=== PATIENT | male | born 1950 | race Caucasian/White ===

== ENCOUNTER 2016-10-31 09:21 | Observation (INO) | payer MEDICARE, BC ==
[~2016-10-31] VITALS: Ht 157.5 cm; Wt 56.0 kg
[~2016-10-31 09:21] MED LIST: ASPI-664 PO; ATOR10TA65 PO; BENA40TA54 PO; CHOL400T10 PO; CLOP75TA27 PO; DOCU-159 PO; FOLI-49 PO; HYDR-2086 PO; HYDR-3672 PO; ISOS30TA18 PO; MEGE40TA17 PO; METO-429 PO; NEPH PO; NIFE60TA7 PO; PANT40TA4 PO; POLY17PO6 PO; SEVE800T10 PO
[2016-10-31 09:25] VITALS: Ht 157.5 cm; Wt 56.0 kg
[2016-10-31] MEDS ORDERED: LANT3I SC (10:18)
[2016-10-31] MEDS ORDERED: ATOR80TA75 PO (10:19)
[2016-10-31 10:52] LABS: ADD SCAN DIFF NO
[2016-10-31 10:56] LABS: BASOPHILS % 0.2 % (0.0-2.0); EOSINOPHILS # 0.1 10^3/ul (0.0-0.5); EOSINOPHILS % 2.2 % (0.0-7.0); HEMATOCRIT 40.1 % (42.0-52.0); HEMOGLOBIN 12.3 g/dl (14.0-18.0); LYMPHOCYTES % 16.6 % (15.0-51.0); MEAN CORPUSCULAR HEMOGLOBIN 30.8 pg (29.0-33.0); MEAN CORPUSCULAR HGB CONC 30.7 g/dl (32.0-37.0); MEAN CORPUSCULAR VOLUME 100.5 fl (82.0-101.0); MEAN PLATELET VOLUME 9.3 fl (7.4-10.4); MONOCYTE # 0.6 10^3/ul (0.3-0.9); MONOCYTES % 9.5 % (0.0-11.0); NEUTROPHIL # 4.1 10^3/ul (1.6-7.5); NEUTROPHILS % 71.2 % (39.0-77.0); PLATELET COUNT 185 10^3/UL (140-415); RED BLOOD COUNT 3.99 10^6/ul (4.70-6.10); RED CELL DISTRIBUTION WIDTH 16.2 % (11.5-14.5); WHITE BLOOD COUNT 5.8 10^3/ul (4.8-10.8)
[2016-10-31] MEDS ORDERED: ACETAMINOPHEN 325 MG TAB PO PRN (11:00)
[2016-10-31] MEDS ORDERED: ONDANSETRON 4 MG INJ IV PRN (11:00)
[2016-10-31 11:06] LABS: POTASSIUM 4.5 mmol/L (3.5-5.1)
[2016-10-31 11:09] LABS: CREATININE 8.33 mg/dl (0.61-1.24)
[2016-10-31 11:10] LABS: CALCIUM 8.5 mg/dl (8.4-10.2); MAGNESIUM 2.2 mg/dl (1.7-2.5); PHOSPHORUS 6.2 mg/dl (2.5-4.9)
--- NOTE | 2016-10-31 11:10 | ERA ---
ER Documentation Chief Complaint Date/Time DATE: 10/31/16 TIME: 11:06 Chief Complaint AV FISTULA CLOGGED HPI 66-year-old female with a history of hypertension, end-stage renal disease on hemodialysis, presenting with a clotted AV fistula in the right arm. He has had this multiple times in the past. He received dialysis 2 days ago. After dialysis , he felt that he had no thrill over the fistula site. He went back to the dialysis center and they told him it was clotted. They advised to go to the ER today. Patient has no other complaints. He denies any pain in the upper extremity. No fevers or chills. No shortness of breath or chest pain. ROS All systems reviewed and are negative except as per history of present illness. Medications Home Meds Active Scripts Isosorbide Dinitrate* (Isosorbide Dinitrate*) 30 Mg Tablet, 30 MG PO TID, #90 TAB Prov:ROBI BOUDREAUX MD 05/12/14 Reported Medications Atorvastatin* (Atorvastatin*) 80 Mg Tablet, 80 MG PO QHS, #30 TAB 10/31/16 Insulin Glargine* (Lantus*) 100 Unit/Ml Soln, 0 SC DAILY Y for ELEVATED BS, #1 VIAL 10/31/16 Clopidogrel Bisulfate (Clopidogrel) 75 Mg Tablet, 75 MG PO DAILY, #30 TAB 04/26/16 Benazepril Hcl* (Lotensin*) 40 Mg Tablet, 40 MG PO BID, #60 TAB 04/26/16 Folic Acid* (Folic Acid*) 1 Mg Tablet, 1 MG PO DAILY, TAB 01/12/15 Nifedipine* (Nifedipine ER*) 60 Mg Tablet.sa, 60 MG PO BID, TAB.SA 01/12/15 Hydralazine Hcl* (Hydralazine Hcl*) 50 Mg Tab, 50 MG PO TID, TAB 01/12/15 Metoprolol Tartrate* (Lopressor*) 50 Mg Tab, 50 MG PO BID, TAB 01/12/15 Aspirin* (Aspirin* (EC)) 81 Mg Tablet.dr, 81 MG PO DAILY, TAB 04/17/14 Discontinued Reported Medications Docusate Sodium* (Docusate Sodium*) 100 Mg Capsule, 100 MG PO DAILY, #30 CAP 04/26/16 Cholecalciferol* (Vitamin D*) 400 Unit Tablet, 400 UNIT PO DAILY, TAB 04/26/16 Polyethylene Glycol* (Miralax*) 17 Gm Powd.pack, 17 GM PO DAILY, #30 PACKET 04/26/16 Hydrocodone Bit-Acetaminophen* (Vicodin*) 5-300 Tab, 1 TAB PO DAILY Y for PAIN, TAB 04/26/16 Megestrol Acetate* (Megestrol Acetate*) 40 Mg Tablet, 40 MG PO DAILY, TAB 04/26/16 Multivit/Ca Carb/B Cmplx/Fa* (Samina-Alexandrea*) 1 Tab Tab, 1 TAB PO DAILY, TAB 04/17/14 Sevelamer Hcl* (Renagel*) 800 Mg Tablet, 800 MG PO TID, TAB 04/16/14 Pantoprazole* (Pantoprazole*) 40 Mg Tablet.dr, 40 MG PO DAILY, TAB 04/16/14 Discontinued Scripts Atorvastatin Calcium (Atorvastatin Calcium) 10 Mg Tab, 10 MG PO QHS, #60 TAB Prov:ROBI BOUDREAUX MD 05/12/14 Allergies Allergies: Coded Allergies: No Known Drug Allergies (Verified Allergy, Unknown, 10/31/16) PMhx/Soc History of Surgery: Yes (CABG,,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 AV fistula) Hx Alcohol Use: No Hx Substance Use: No Hx Tobacco Use: No Smoking Status: Never smoker FmHx Family History: No diabetes Physical Exam Vitals Vital Signs Date Time Temp Pulse Resp B/P Pulse Ox O2 Delivery O2 Flow Rate FiO2 10/31/16 09:25 97.9 71 18 168/71 99 Physical Exam Const: Well-appearing, in no distress Head: Atraumatic Eyes: Corneal scarring bilaterally, legally blind ENT: Dry oral mucosa Neck: Full range of motion..~ No meningismus. Resp: Clear to auscultation bilaterally Cardio: Regular rate and rhythm, no murmurs Abd: Soft, non tender, non distended. Normal bowel sounds Skin: No petechiae or rashes Back: No midline or flank tenderness Ext: No cyanosis, or edema. Right upper extremity AV fistula without thrill. No evidence of overlying infection Neur: Awake and alert Psych: Normal Mood and Affect Result Diagram: 10/31/16 1029 Results 24 hrs Laboratory Tests Test 10/31/16 10:29 White Blood Count 5.810^3/ul Red Blood Count 3.9910^6/ul Hemoglobin 12.3g/dl Hematocrit 40.1% Mean Corpuscular Volume 100.5fl Mean Corpuscular Hemoglobin 30.8pg Mean Corpuscular Hemoglobin Concent 30.7g/dl Red Cell Distribution Width 16.2% Platelet Count 84027^3/UL Mean Platelet Volume 9.3fl Neutrophils % 71.2% Lymphocytes % 16.6% Monocytes % 9.5% Eosinophils % 2.2% Basophils % 0.2% Nucleated Red Blood Cells % 0.0/100WBC Neutrophils # 4.110^3/ul Lymphocytes # 1.010^3/ul Monocytes # 0.610^3/ul Eosinophils # 0.110^3/ul Basophils # 0.010^3/ul Nucleated Red Blood Cells # 0.010^3/ul Current Medications Medications (Trade) Dose Ordered Sig/Thomas Route PRN Reason Start Time Stop Time Status Last Admin Dose Admin Ondansetron HCl (Zofran Inj) 4 mg BRIDGE ORDER PRN IV NAUSEA AND/OR VOMITING 10/31/16 11:00 11/01/16 10:59 Acetaminophen (Tylenol Tab) 650 mg ER BRIDGE PRN PO MILD PAIN/FEVER 10/31/16 11:00 11/01/16 10:59 Procedures/MDM Patient is presenting with a clotted AV fistula. He is due for dialysis today. Currently he is hemodynamically stable. He will likely need admission for dialysis and declotting of the graft. Vascular surgeon, Dr. Burr was paged without response. I spoke with Dr. Calhoun, who will admit the patient to [facility]. Accepting Care Team: Current data and ongoing care discussed. Time: Time of admission Primary Provider: Lj Consulting: none Outstanding Data: none Departure Diagnosis: Primary Impression: Complication of vascular access for dialysis Qualified Code: T82.9XXA - Complication of vascular access for dialysis, initial encounter Condition: CHECO Parker MD Oct 31, 2016 11:10
[2016-10-31 11:40] VITALS: TEMP 98
[2016-10-31 12:30] VITALS: BP 160/69; RESP 20
[2016-10-31] MEDS ORDERED: DEXTROSE 5%-0.45% NACL 1,000 ML IV SCH (17:00)
[2016-10-31] MEDS ORDERED: DEXTROSE 50% 50 ML SYRINGE IV PRN ×2 (17:00)
[2016-10-31] MEDS ORDERED: GLUCOSE GEL 15 GRAM TUBE PO PRN ×2 (17:00)
[2016-10-31] MEDS ORDERED: GLUCOSE GEL 15 GRAM TUBE BUCCAL PRN (17:00)
[2016-10-31] MEDS ORDERED: GLUCAGON 1 MG INJ IM PRN (17:00)
--- NOTE | 2016-10-31 17:33 | RADRPT ---
PROCEDURE: XR Chest. CLINICAL INDICATION: Shortness of breath. TECHNIQUE: Single frontal view. COMPARISON: 04/26/2016. FINDINGS: The lungs are clear. The heart is enlarged. There is calcification in the aorta consistent with atherosclerosis. There are sternal wires and mediastinal clips. There is no right pleural effusion. There is a small left pleural effusion. There is no pneumothorax. IMPRESSION: 1. Cardiomegaly and atherosclerosis. 2. Previous median sternotomy. 3. No right pleural effusion. 4. Small left pleural effusion. RPTAT: QQ .Mikey Benitez MD, MD Date Time Electronically viewed and signed by .Mikey Benitez MD, MD on 10/31/2016 17:33 .R/
[2016-10-31] MEDS: INSULIN ASPART [NOVOLOG] 3 ML PEN SC SCH ×2 (17:37→20:44)
[2016-10-31 17:51] LABS: INR 1.12; PROTIME 14.4 Sec (12.2-14.2); PT RATIO 1.1
[2016-10-31 17:52] LABS: PARTIAL THROMBOPLASTIN TIME 35.8 Sec (25.0-35.0)
--- NOTE | 2016-10-31 18:04 | QN ---
Documentation Comment [id number] SEPIDEH SAUCEDO MD Oct 31, 2016 18:04
[2016-10-31 20:00] VITALS: BP 186/85; RESP 20
[2016-10-31] MEDS: ISOSORBIDE DINITRATE 10 MG TAB PO SCH (20:34)
[2016-10-31] MEDS: NIFEdipine (XL) 60 MG TAB PO SCH (20:34)
[2016-10-31] MEDS: ATORVASTATIN 80 MG TAB PO SCH (20:34)
[2016-10-31] MEDS: METOPROLOL 50 MG TAB PO SCH (20:36)
[2016-10-31] MEDS: BENAZEPRIL 40 MG TAB PO SCH (20:37)
--- NOTE | 2016-10-31 23:23 | HP ---
DATE OF ADMISSION: 10/31/2016 HISTORY OF PRESENT ILLNESS: Abdon Villanueva is a 66-year-old male with history of ESRD, hypertension, history of clotted graft in the right upper extremity. The patient was discharged previously with diagnosis of hypertension, diabetes mellitus, CAD, atherosclerotic heart disease, dyslipidemia, legal blindness, history of coronary artery bypass graft, history of vascular hypertension. The patient has a history of angioplasty of the brachial artery, angioplasty of the basilic vein. Now presents with clotted AV graft in the upper extremity and is being admitted for further management. PAST MEDICAL HISTORY: History of clotted AV graft and thrombectomy, history of anemia, history of blood transfusion, hypertension, diabetes mellitus, CAD, legal blindness, left BKA, atherosclerotic heart disease, dyslipidemia, history of sepsis, PVD, foot wound. ALLERGY HISTORY: NEGATIVE. FAMILY HISTORY: Negative. SOCIAL HISTORY: Negative. MEDICATION HISTORY: 1. Aspirin. 2. Atorvastatin. 3. Benazepril. 4. Plavix. 5. folic acid. 6. Hydralazine. 7. bp meds 8. Isosorbide. 9. Metoprolol. 10. Nifedipine. REVIEW OF SYSTEMS: Unremarkable. HEENT: Unremarkable. RESPIRATORY: Unremarkable. CARDIOVASCULAR: No chest pain, palpitation. ABDOMEN: Unremarkable. EXTREMITIES: Unremarkable, except a left BKA. PHYSICAL EXAMINATION: GENERAL: The patient is awake, alert. VITAL SIGNS: Pulse of 53, blood pressure 166/69. HEAD: Atraumatic, normocephalic. Pupils: The patient has cloudy eyes. NECK: Supple. LUNGS: Clear. CARDIOVASCULAR: S1, S2 normal. Systolic murmur noted. CABG scar noted. ABDOMEN: Soft, nontender. Bowel sounds present. No palpable mass. EXTREMITIES: Left BKA. The patient has a clotted graft in the left upper extremity and right upper extremity. LABORATORY DATA: Hematocrit 40.1. Sodium 140, potassium 4.5. The patient had a chest x-ray: Cardiomegaly, , sternotomy. IMPRESSION: 1. The patient has clotted graft. 2. Hypertension. 3. Diabetes mellitus. 4. Endstage renal disease. 5. Anemia. 6. Atherosclerotic heart disease. PLAN: To continue home medication. Hold Plavix. Vascular surgical consultation for declotting. The patient will have sliding scale. Orders were done. Dictated By: SEPIDEH SAUCEDO MD BS/CAMELIA Conf#: [id number] DID#: [id number]
[2016-11-01] VITALS (23 sets, daily range): BP systolic 99–142; BP diastolic 37–67; PULSE 92–106; RESP 16–24
--- NOTE | 2016-11-01 01:45 | CONS ---
DATE OF ADMISSION: 10/31/2016 DATE OF CONSULTATION: REASON FOR CONSULTATION: Clotted right upper extremity AV fistula. Thank you, Dr. Calhoun, for asking me to see this patient. HISTORY OF PRESENT ILLNESS: This is a 66-year-old male known to me. He is currently on dialysis pe r right upper extremity AV fistula which has been clotted. Patient is now being admitted for evalua tion and treatment of a clotted AV fistula. PAST MEDICAL HISTORY: Hypertension, diabetes, peripheral vascular disease, hyperlipidemia. PAST SURGICAL HISTORY: Lower extremity amputation, right upper extremity AV fistula thrombectomy. ALLERGIES: NONE. SOCIAL HISTORY: No smoking, drinking or drug use. MEDICATIONS: List reviewed. REVIEW OF SYSTEMS: Negative. FAMILY HISTORY: No history of sudden cardiac . PHYSICAL EXAMINATION: VITAL SIGNS: Blood pressure is 186/85, pulse is 72, respirations 20, saturations 96% on room air. HEENT: Normocephalic, atraumatic. PERRLA. NECK: Supple. No JVD, no carotid bruits. CARDIOVASCULAR: Regular rate and rhythm. LUNGS: Clear. ABDOMEN: Soft. EXTREMITIES: Warm. Right upper extremity arteriovenous fistula is inspected, which has no thrill o r bruit. LABORATORY VALUES: Hemoglobin 12.3, white count 5.8, platelet count is 185. Normal coagulation fac tors and a potassium of 4.5. IMPRESSION: Clotted right upper extremity arteriovenous fistula. RECOMMENDATIONS: We will proceed with thrombectomy, right upper extremity fistula. Risks, benefits , complications, alternative therapies explained to the patient. All questions answered. Dictated By: BERNY PEREZ/CAMELIA Conf#: [id number] DID#: [id number]
[2016-11-01] MEDS: ACCU-CHEK XX SCH (02:00)
[2016-11-01] MEDS: INSULIN ASPART [NOVOLOG] 3 ML PEN SC SCH ×4 (07:43→22:32)
[2016-11-01] MEDS: NIFEdipine (XL) 60 MG TAB PO SCH (09:00)
[2016-11-01] MEDS: FOLIC ACID 1 MG TAB PO SCH (09:00)
[2016-11-01] MEDS: METOPROLOL 50 MG TAB PO SCH (09:00)
[2016-11-01] MEDS: ASPIRIN (EC) 81 MG TAB PO SCH (09:00)
[2016-11-01] MEDS: BENAZEPRIL 40 MG TAB PO SCH (09:00)
[2016-11-01] MEDS: ISOSORBIDE DINITRATE 10 MG TAB PO SCH ×2 (09:00→13:00)
--- NOTE | 2016-11-01 17:53 | PN ---
Date/Time of Note Date/Time of Note DATE: 11/01/16 TIME: 17:52 Assessment/Plan VTE Prophylaxis VTE Prophylaxis Intervention: other Lines/Catheters IV Catheter Type (from Nrs): Peripheral IV Assessment/Plan Chief Complaint/Hosp Course IMPRESSION: 1. The patient has clotted graft. 2. Hypertension. 3. Diabetes mellitus. 4. Endstage renal disease. 5. Anemia. 6. Atherosclerotic heart disease. plan hd declotting Problems: Subjective 24 Hr Interval Summary Respiratory: no complaints Cardiovascular: no complaints Exam/Review of Systems Vital Signs Vitals Vital Signs Date Time Temp Pulse Resp B/P Pulse Ox O2 Delivery O2 Flow Rate FiO2 11/01/16 07:44 98.6 64 18 142/67 96 10/31/16 11:40 Room Air Intake and Output 10/31/16 10/31/16 11/01/16 15:00 23:00 07:00 Intake Total 0 ml 330 ml Output Total 0 ml Balance 0 ml 330 ml Exam Neck: supple Respiratory: clear to auscultation Cardiovascular: regular rate and rhythm Gastrointestinal: soft Musculoskeletal: nl extremities to inspection Results Result Diagram: 10/31/16 1029 10/31/16 1029 Results 24 hrs Laboratory Tests Test 10/31/16 20:40 11/01/16 07:41 11/01/16 11:52 11/01/16 12:30 Bedside Glucose 128 97 78 76 Test 11/01/16 17:44 Bedside Glucose 108 Medications Medications Current Medications Aspirin (Halfprin) 81 mg DAILY PO ; Start 11/01/16 at 09:00 Atorvastatin Calcium (Lipitor) 80 mg QHS PO Last administered on 10/31/16 20: 34; Admin Dose 80 MG; Start 10/31/16 at 21:00 Benazepril HCl (Lotensin) 40 mg BID PO Last administered on 10/31/16 20:37; Admin Dose 40 MG; Start 10/31/16 at 21:00 Folic Acid (Folic Acid) 1 mg DAILY PO ; Start 11/01/16 at 09:00 Hydralazine HCl (Apresoline) 50 mg TID PO Last administered on 10/31/16 20:35 ; Admin Dose 50 MG; Start 10/31/16 at 21:00 Isosorbide Dinitrate (Isordil) 30 mg TID PO Last administered on 10/31/16 20: 34; Admin Dose 30 MG; Start 10/31/16 at 21:00 Metoprolol Tartrate (Lopressor) 50 mg BID PO Last administered on 10/31/16 20: 36; Admin Dose 50 MG; Start 10/31/16 at 21:00 Nifedipine 60 mg 60 mg BID PO Last administered on 10/31/16 20:34; Admin Dose 60 MG; Start 10/31/16 at 21:00 Dextrose/Sodium Chloride (D5-1/2ns) 1,000 ml @ 0 mls/hr Q0M IV Last administered on 10/31/16 20:38; Admin Dose 10 MLS/HR; Start 10/31/16 at 17:00 Diagnostic Test (Pha) (Accu-Chek) 1 ea 02 XX ; Start 11/01/16 at 02:00 Miscellaneous Information 1 ea NOTE XX ; Start 10/31/16 at 17:00 Glucose (Glutose) 15 gm Q15M PRN PO DECREASED GLUCOSE; Start 10/31/16 at 17:00 Glucose (Glutose) 22.5 gm Q15M PRN PO DECREASED GLUCOSE; Start 10/31/16 at 17: 00 Dextrose (D50w Syringe) 25 ml Q15M PRN IV DECREASED GLUCOSE; Start 10/31/16 at 17:00 Dextrose (D50w Syringe) 50 ml Q15M PRN IV DECREASED GLUCOSE; Start 10/31/16 at 17:00 Glucagon (Glucagen) 1 mg Q15M PRN IM DECREASED GLUCOSE; Start 10/31/16 at 17:00 Glucose (Glutose) 15 gm Q15M PRN BUCCAL DECREASED GLUCOSE; Start 10/31/16 at 17 :00 SEPIDEH SAUCEDO MD Nov 01, 2016 17:53
[2016-11-01] MEDS ORDERED: IOHEXOL 300MG/ML 30 ML BTL ONE (18:29)
[2016-11-01] MEDS ORDERED: HEPARIN 1000 UNITS/ML 10 ML INJ ONE ×2 (18:29→19:22)
[2016-11-01] MEDS ORDERED: THROMBIN 5000 UNIT VIAL ONE (18:29)
[2016-11-01] MEDS ORDERED: LIDOCAINE 1% (MPF) 30 ML INJ ONE (18:29)
[2016-11-01] MEDS ORDERED: GELATIN SIZE 100 SPONGE ONE (18:29)
[2016-11-01] MEDS ORDERED: BUPIVACAINE 0.25% (MPF) 30 ML INJ ONE (18:29)
[2016-11-01] MEDS ORDERED: FENTAnyl 50 MCG/ML VIAL ONE (18:37)
[2016-11-01] MEDS ORDERED: DIPHENHYDRAMINE 50 MG INJ IV PRN (19:30)
[2016-11-01] MEDS ORDERED: ONDANSETRON 4 MG INJ IV PRN (19:30)
[2016-11-01] MEDS ORDERED: FENTAnyl 50 MCG/ML VIAL IV PRN (19:30)
[2016-11-01] MEDS ORDERED: LIDOCAINE 2% (SDV) 5 ML INJ ONE (19:45)
[2016-11-01] MEDS ORDERED: ETOMIDATE 20 MG INJ ONE (19:45)
[2016-11-01] MEDS ORDERED: CEFAZOLIN 1 GM INJ ONE (19:46)
[2016-11-01] MEDS ORDERED: ONDANSETRON 4 MG INJ ONE (19:47)
--- NOTE | 2016-11-01 22:48 | OPR ---
DATE OF OPERATION: PREOPERATIVE DIAGNOSIS: Clotted right upper extremity arteriovenous graft. POSTOPERATIVE DIAGNOSIS: Clotted right upper extremity arteriovenous graft. OPERATION PERFORMED: 1. Thrombectomy. 2. Right upper extremity shuntogram. 3. Right upper extremity venogram. 4. Angioplasty, right brachial artery, 5 x 40 mm balloon. 5. Angioplasty, right basilic vein, 5 x 40 mm balloon. 6. Interpretation and supervision of the arterial and the venous angioplasty. 7. Fluoroscopy. 8. Central venogram. 9. Interpretation and supervision of a central venogram. SURGEON: Berny Jackson MD ANESTHESIA: Local plus IV sedation. CONSENT: Risks, benefits, complications, alternative therapies explained to the patient and the [facility], consent obtained. OPERATIVE TECHNIQUE: The patient was placed in supine position, prepped, and draped in usual steril e fashion. Lidocaine 1% was used throughout the operation for local anesthesia. I made a 1 cm inci valerie over the right forearm AV graft at the venous limb of the AV graft. The graft was identified. Vesseloops were passed around it. It was opened in a horizontal fashion. Thrombectomy of arterial and venous limbs of the graft was performed using a 4-[place] Dylan catheter. Large amount of ben t was removed. Arteriogram was done, which showed a 90% stenosis at the arterial anastomosis. The patient was given 5000 units of IV heparin. An 0.035 guidewire was advanced through without any dif ficulties and the site of stenosis was angioplastied using a 5 x 40 mm balloon. Venacavogram was do ne, which showed basilic vein that was stenotic about 70%, which was again angioplastied over an 0.0 35 guidewire up to 2 atmospheres of pressure. The final arteriogram revealed 0% stenosis and the fi nal venogram revealed less than 10% stenosis. A central venogram was done, which showed no evidence of any stenosis in the left axillary vein, subclavian vein, and superior vena cava. Both limbs of the graft were injected using heparinized saline solution. The graft was closed using 6-0 Prolene i n continuous fashion. The wound was irrigated and closed in 2 layers of 3-0 Vicryl suture in runnin g and subcuticular skin closure. The patient tolerated the procedure well. Dictated By: BERNY PEREZ/CAMELIA Conf#: [id number] DID#: [id number] CC: SEPIDEH SAUCEDO MD;*[facility]*
[2016-11-01] MEDS: ONDANSETRON 4 MG INJ IV PRN (23:13)
[2016-11-02] VITALS (14 sets, daily range): BP systolic 106–177; BP diastolic 55–77; PULSE 87–97; RESP 20
[2016-11-02] MEDS: METOPROLOL 50 MG TAB PO SCH ×3 (00:02→12:47)
[2016-11-02] MEDS: BENAZEPRIL 40 MG TAB PO SCH ×3 (00:02→12:47)
[2016-11-02] MEDS: ISOSORBIDE DINITRATE 10 MG TAB PO SCH ×3 (00:22→12:45)
[2016-11-02] MEDS: NIFEdipine (XL) 60 MG TAB PO SCH ×3 (00:36→12:48)
[2016-11-02] MEDS: ATORVASTATIN 80 MG TAB PO SCH (00:37)
[2016-11-02] MEDS ORDERED: hydrALAzine 20 MG INJ IV PRN (01:30)
[2016-11-02] MEDS: ACCU-CHEK XX SCH (02:00)
[2016-11-02] MEDS ORDERED: METOCLOPRAMIDE 10 MG INJ IV PRN (03:30)
[2016-11-02] MEDS: INSULIN ASPART [NOVOLOG] 3 ML PEN SC SCH ×2 (08:15→12:46)
[2016-11-02] MEDS: FOLIC ACID 1 MG TAB PO SCH ×2 (09:00→12:45)
[2016-11-02] MEDS: ASPIRIN (EC) 81 MG TAB PO SCH ×2 (09:00→12:45)
--- NOTE | 2016-11-02 09:02 | RADRPT ---
Vent Rate: 67 bpm RR Interval: 0 msec AR Interval: 160 msec QRS Duration: 86 msec QT Interval: 408 msec QTC Interval: 431 msec P-R-T [place]: 38 - 126 - 82 degrees Normal sinus rhythm Right axis deviation Abnormal ECG Electronically Signed By: El Watson [id number]
[2016-11-02] MEDS: ONDANSETRON 4 MG INJ IV PRN (11:41)
--- NOTE | 2016-11-02 12:39 | RADRPT ---
PROCEDURE: Intraoperative imaging of the right upper extremity with fluoroscopy. CLINICAL INDICATION: Right arm pain. Intraoperative. TECHNIQUE: 16 images of the right upper extremity were obtained in the operating room with an imag e intensifier. No radiologist was in attendance. COMPARISON: No prior study is available for comparison. FINDINGS: Images demonstrate surgical instruments overlying the right upper extremity. Contrast injection int o the arterial system was performed. There is severe stenosis of the outflow vein of the dialysis g raft. Balloon venoplasty was performed by the surgeon. IMPRESSION: 1. Intraoperative imaging of the right upper extremity. RPTAT: QQ .Mikey Benitez MD, MD Date Time Electronically viewed and signed by .Mikey Benitez MD, on 11/02/2016 12:38 .R/
--- NOTE | 2016-11-02 13:09 | PDOCDIS ---
Discharge Instructions CONDITION Patient Condition: Stable HOME CARE INSTRUCTIONS: Special Diet: CARB CONTROLLED DIET ACTIVITY: Activity Restrictions: Slowly Increase Activity FOLLOW UP/APPOINTMENTS Appointments f/u dr finley 1 wk, see dr saucedo 2 wks SEPIDEH SAUCEDO MD Nov 02, 2016 13:09
--- NOTE | 2016-11-05 07:57 | QN ---
Documentation Comment [id number] SEPIDEH SAUCEDO MD Nov 05, 2016 07:56
--- NOTE | 2016-11-05 13:47 | DS ---
DATE OF ADMISSION: 10/31/2016 DATE OF DISCHARGE: 11/02/2016 The patient was admitted with clotted AV graft, was seen by Dr. Jackson and underwent thrombectomy, right upper extremity,edema and angioplasty right brachial artery with a 5 x 14 mm balloon. The patient has angioplasty right basilic veins. The patient has fluoroscopy. The patient underwent hemodialysis and was discharged home. DISCHARGE DIAGNOSES: Include: 1. Clotted arteriovenous draft status post thrombectomy. 2. Angioplasty of cephalic vein and_brachial artery. 3. Hypertension. 4. Diabetes mellitus. 5. Anemia. 6. Electrolyte imbalance. 7. Atherosclerotic heart disease. 8. Dyslipidemia. 9. Legal blindness. 10. History of sepsis. 11. History of peripheral vascular disease. DISCHARGE MEDICATIONS: To continue on: 1. Aspirin. 2. Metoprolol. 3. Benazepril. 4. Plavix. 5. Folic acid. 6. Hydralazine. 7. Insulin. 8. Isosorbide. 9. Nifedipine. ASSESSMENT AND PLAN: The patient is stable at the time of discharge. The patient will follow up with Dr. Saucedo as an outpatient and Dr. Jackson. Dictated By: SEPIDEH SAUCEDO MD BS/NTS Conf#: [id number] DID#: [id number]
== END 2016-11-02 16:50 | disposition home or self-care (01) ==
LOC: E/R 09:21 → MS2 10:58
PROVIDERS: ADMIT Internal Medicine Nephrology; ATTEND Internal Medicine Nephrology
DX: T82.868A Thrombosis due to vascular prosthetic devices, implants and grafts, initial encounter (principal); T82.858A Stenosis of other vascular prosthetic devices, implants and grafts, initial encounter; I12.0 Hypertensive chronic kidney disease with stage 5 chronic kidney disease or end stage renal disease; N18.6 End stage renal disease; Z99.2 Dependence on renal dialysis; E11.22 Type 2 diabetes mellitus with diabetic chronic kidney disease; E11.51 Type 2 diabetes mellitus with diabetic peripheral angiopathy without gangrene; Z79.4 Long term (current) use of insulin; E78.5 Hyperlipidemia, unspecified; D64.9 Anemia, unspecified; H54.8 Legal blindness, as defined in USA; I25.10 Atherosclerotic heart disease of native coronary artery without angina pectoris; Z95.1 Presence of aortocoronary bypass graft; Z89.512 Acquired absence of left leg below knee; Z87.01 Personal history of pneumonia (recurrent); Z79.82 Long term (current) use of aspirin; Z79.02 Long term (current) use of antithrombotics/antiplatelets; Y83.2 Surgical operation with anastomosis, bypass or graft as the cause of abnormal reaction of the patient, or of later complication, without mention of misadventure at the time of the procedure
CPT/HCPCS: 36415; 36905; 71010; 75962; 80048; 82962; 83735; 84100; 85025; 85610; 85730; 90935; 93005; 96372; 96374; 96375; 99285; C1725; G0378; J0360; J0690; J1644; J1815; J2405; J2765; J3010; Q9967

== ENCOUNTER 2017-04-10 14:04 | Observation (INO) | payer MEDICARE, BC ==
[~2017-04-10] VITALS: Ht 167.6 cm; Wt 56.0 kg
[~2017-04-10 14:04] MED LIST changes: -ATOR10TA65 PO; +ATOR80TA75 PO; -CHOL400T10 PO; -DOCU-159 PO; -HYDR-2086 PO; +LANT3I SC; -MEGE40TA17 PO; -NEPH PO; -PANT40TA4 PO; -POLY17PO6 PO; -SEVE800T10 PO
[2017-04-10] MEDS ORDERED: NEPH PO (16:41)
--- NOTE | 2017-04-10 17:23 | ERA ---
ER Documentation Chief Complaint Date/Time DATE: 04/10/17 TIME: 17:21 Chief Complaint pt bib daughter for RFA AV fistula being clotted HPI 67-year-old man brought in by daughter for possible clotted right upper extremity AV fistula. He has end-stage kidney disease and undergoes hemodialysis Monday, , Saturdays. Last hemodialysis 2 days ago. Patient denies chest pain or shortness of breath, no fevers or chills, no recent trauma, no vomiting or diarrhea. ROS All systems reviewed and are negative except as per history of present illness. Medications Home Meds Active Scripts Isosorbide Dinitrate* (Isosorbide Dinitrate*) 30 Mg Tablet, 30 MG PO TID, #90 TAB Prov:ROBI BOUDREAUX MD 05/12/14 Reported Medications Multivit/Ca Carb/B Cmplx/Fa* (Samina-Alexandrea*) 1 Tab Tab, 1 TAB PO DAILY, TAB 04/10/17 Atorvastatin* (Atorvastatin*) 80 Mg Tablet, 80 MG PO QHS, #30 TAB 10/31/16 Insulin Glargine* (Lantus*) 100 Unit/Ml Soln, 0 SC DAILY Y for ELEVATED BS, #1 VIAL 2 units as needed 10/31/16 Clopidogrel Bisulfate (Clopidogrel) 75 Mg Tablet, 75 MG PO DAILY, #30 TAB 04/26/16 Benazepril Hcl* (Lotensin*) 40 Mg Tablet, 40 MG PO BID, #60 TAB 04/26/16 Folic Acid* (Folic Acid*) 1 Mg Tablet, 1 MG PO DAILY, TAB 01/12/15 Nifedipine* (Nifedipine ER*) 60 Mg Tablet.sa, 60 MG PO BID, TAB.SA 01/12/15 Hydralazine Hcl* (Hydralazine Hcl*) 50 Mg Tab, 50 MG PO TID, TAB 01/12/15 Metoprolol Tartrate* (Lopressor*) 50 Mg Tab, 50 MG PO BID, TAB 01/12/15 Aspirin* (Aspirin* (EC)) 81 Mg Tablet.dr, 81 MG PO DAILY, TAB 04/17/14 Allergies Allergies: Coded Allergies: No Known Drug Allergies (Verified Allergy, Unknown, 04/10/17) PMhx/Soc Hypertension, end-stage kidney disease, hemodialysis dependent Monday, , Saturdays, CAD History of Surgery: Yes ( CABG, LEFT BKA, AVF PLACEMENT, RETINAL DETACHMENT) Anesthesia Reaction: No Hx Neurological Disorder: No Hx Respiratory Disorders: No Hx Psychiatric Problems: No Hx Miscellaneous Medical Probl: Yes (LEFT BKA) Hx Alcohol Use: No Hx Substance Use: No Hx Tobacco Use: No Physical Exam Vitals Vital Signs Date Time Temp Pulse Resp B/P Pulse Ox O2 Delivery O2 Flow Rate FiO2 04/10/17 14:09 98.3 74 16 138/63 99 Physical Exam GENERAL: Well-developed, well-nourished, well-hydrated, in no apparent distress , looks nontoxic in appearance HEENT: Moist mucous membranes, pink conjunctiva, no cervical spine tenderness or step-off deformities, no goiter, no jaundice or icterus, extraocular movements intact without pain. No submandibular induration, and no pharyngeal erythema NEURO: Alert and oriented 3, cranial nerves II through XII intact bilaterally, pupils equal round reactive to light, no focal deficits or facial asymmetry, sensation intact distally Strength 5/5 in upper and lower extremities bilaterally CARDIAC: Regular rate and rhythm, no murmurs rubs or gallops LUNGS: Clear bilaterally no wheezing crackles or stridor ABDOMEN: Soft nontender, no guarding, no rigidity, no rebound, no psoas sign no obturator sign. Normoactive bowel sounds SKIN: Warm and dry to touch, no abrasions, contusions, or hematomas, no lacerations, no ecchymosis, no target lesions, and without ulcers EXTREMITIES: AV fistula noted in the right upper extremity, no thrill palpated, no overlying skin cellulitis PSYCH: Normal affect without agitation or irritability Result Diagram: 04/10/17 1710 04/10/17 1710 Results 24 hrs Laboratory Tests Test 04/10/17 17:10 White Blood Count 6.210^3/ul Red Blood Count 2.6310^6/ul Hemoglobin 8.3g/dl Hematocrit 25.3% Mean Corpuscular Volume 96.2fl Mean Corpuscular Hemoglobin 31.6pg Mean Corpuscular Hemoglobin Concent 32.8g/dl Red Cell Distribution Width 14.6% Platelet Count 06096^3/UL Mean Platelet Volume 10.0fl Neutrophils % 70.1% Lymphocytes % 15.8% Monocytes % 10.0% Eosinophils % 3.7% Basophils % 0.2% Nucleated Red Blood Cells % 0.0/100WBC Neutrophils # 4.410^3/ul Lymphocytes # 1.010^3/ul Monocytes # 0.610^3/ul Eosinophils # 0.210^3/ul Basophils # 0.010^3/ul Nucleated Red Blood Cells # 0.010^3/ul Prothrombin Time 14.2Sec Prothrombin Time Ratio 1.1 INR International Normalized Ratio 1.10 Sodium Level 139mmol/L Potassium Level 4.8mmol/L Chloride Level 100mmol/L Carbon Dioxide Level 25mmol/L Anion Gap 19 Blood Urea Nitrogen 71mg/dl Creatinine 7.05mg/dl Glucose Level 161mg/dl Calcium Level 8.6mg/dl Total Bilirubin 0.0mg/dl Direct Bilirubin 0.00mg/dl Indirect Bilirubin 0.0mg/dl Aspartate Amino Transf (AST/SGOT) 31IU/L Alanine Aminotransferase (ALT/SGPT) 37IU/L Alkaline Phosphatase 156IU/L Troponin I < 0.012ng/ml Total Protein 6.9g/dl Albumin 3.8g/dl Globulin 3.10g/dl Albumin/Globulin Ratio 1.22 Lipase 244U/L Current Medications Medications (Trade) Dose Ordered Sig/Thomas Route PRN Reason Start Time Stop Time Status Last Admin Dose Admin Aspirin (Halfprin) 81 mg DAILY PO 04/11/17 09:00 Atorvastatin Calcium (Lipitor) 80 mg QHS PO 04/10/17 21:00 Benazepril HCl (Lotensin) 40 mg BID PO 04/10/17 21:00 Folic Acid (Folic Acid) 1 mg DAILY PO 04/11/17 09:00 Hydralazine HCl (Apresoline) 50 mg TID PO 04/10/17 21:00 Isosorbide Dinitrate (Isordil) 30 mg TID PO 04/10/17 21:00 Metoprolol Tartrate (Lopressor) 50 mg BID PO 04/10/17 21:00 Multivit/Ca Carb/ B Cmplx/FA/Prenat (Samina-Alexandrea) 1 tab DAILY PO 04/11/17 09:00 Nifedipine (Procardia Xl) 60 mg BID PO 04/10/17 21:00 IV Flush (NS 3 ml) 3 ml PER PROTOCOL IV 04/10/17 19:30 Ondansetron HCl (Zofran Inj) 4 mg Q6H PRN IV NAUSEA AND/OR VOMITING 04/10/17 19:30 Docusate Sodium (Colace) 100 mg Q12H PRN PO CONSTIPATION 04/10/17 19:30 Bisacodyl (Dulcolax) 5 mg DAILY PRN PO CONSTIPATION 04/10/17 19:30 Famotidine (Pepcid Iv) 10 mg DAILY IV 04/11/17 09:00 Miscellaneous Information (* Miscellaneous Pharmacy Order) Discontinue current oral sulfonylur... ONCE ONCE XX 04/10/17 19:30 04/10/17 19:31 DC Diagnostic Test (Pha) (Accu-Chek) 1 ea 02 XX 04/11/17 02:00 Miscellaneous Information (* Miscellaneous Pharmacy Order) HYPOGLYCEMIA PROTOCOL w... ONCE ONCE XX 04/10/17 19:30 04/10/17 19:31 DC Insulin Aspart (Novolog Insulin Pen) NOVOLOG *MILD* ALGORITHM WITH MEALS BEDTIME SC 04/10/17 21:00 Miscellaneous Information (* Miscellaneous Pharmacy Order) Discontinue all previ... ONCE ONCE XX 04/10/17 19:30 04/10/17 19:31 DC Miscellaneous Information 1 ea NOTE XX 04/10/17 19:30 Glucose (Glutose) 15 gm Q15M PRN PO DECREASED GLUCOSE 04/10/17 19:30 Glucose (Glutose) 22.5 gm Q15M PRN PO DECREASED GLUCOSE 04/10/17 19:30 Dextrose (D50w Syringe) 25 ml Q15M PRN IV DECREASED GLUCOSE 04/10/17 19:30 Dextrose (D50w Syringe) 50 ml Q15M PRN IV DECREASED GLUCOSE 04/10/17 19:30 Glucagon (Glucagen) 1 mg Q15M PRN IM DECREASED GLUCOSE 04/10/17 19:30 Glucose (Glutose) 15 gm Q15M PRN BUCCAL DECREASED GLUCOSE 04/10/17 19:30 Procedures/MDM IV line was established patient was placed on cardiac technician rhythm strip revealed a sinus rhythm at about 60 bpm. Patient was afebrile. EKG performed, read by me: 65 bpm, normal sinus rhythm, normal axis, no acute ST segment changes, narrow QRS complex, with good R-wave progression in precordial leads. Vascular Doppler ultrasound of the arteries of the right upper extremity was performed, the arteriovenous fistula is thrombosed. Please refer to radiologist dictation for full report. CBC Revealed anemia with a hemoglobin of 8.3,and electrolytes Revealed dehydration and kidney failure with a BUN/creatinine of 71/7 liver function tests are normal, troponin was negative.Coagulation profile was normal. Patient will be admitted to his PMD Dr. Calhoun and I spoke to vascular surgeon Dr. Jackson regarding the patient's presentation and symptomatology he agreed to evaluate the patient, recommended n.p.o. status Departure Diagnosis: Primary Impression: AV fistula thrombosis Qualified Code: T82.868A - Thrombosis of arteriovenous fistula, initial encounter Additional Impressions: End stage kidney disease Anemia Qualified Code: D64.9 - Anemia, unspecified type Condition: DANELLE Marte MD Apr 10, 2017 17:23
[2017-04-10 17:29] LABS: BASOPHILS % 0.2 % (0.0-2.0); EOSINOPHILS # 0.2 10^3/ul (0.0-0.5); EOSINOPHILS % 3.7 % (0.0-7.0); HEMATOCRIT 25.3 % (42.0-52.0); HEMOGLOBIN 8.3 g/dl (14.0-18.0); LYMPHOCYTES % 15.8 % (15.0-51.0); MEAN CORPUSCULAR HEMOGLOBIN 31.6 pg (29.0-33.0); MEAN CORPUSCULAR HGB CONC 32.8 g/dl (32.0-37.0); MEAN CORPUSCULAR VOLUME 96.2 fl (82.0-101.0); MONOCYTE # 0.6 10^3/ul (0.3-0.9); NEUTROPHIL # 4.4 10^3/ul (1.6-7.5); NEUTROPHILS % 70.1 % (39.0-77.0); PLATELET COUNT 153 10^3/UL (140-415); RED BLOOD COUNT 2.63 10^6/ul (4.70-6.10); RED CELL DISTRIBUTION WIDTH 14.6 % (11.5-14.5); WHITE BLOOD COUNT 6.2 10^3/ul (4.8-10.8)
[2017-04-10 17:45] LABS: INR 1.1; PROTIME 14.2 Sec (12.2-14.2); PT RATIO 1.1
[2017-04-10 17:49] LABS: ALANINE AMINOTRANSFERASE 37 IU/L (13-69); ALBUMIN 3.8 g/dl (3.3-4.9); ALBUMIN/GLOBULIN RATIO 1.22; ALKALINE PHOSPHATASE 156 IU/L (42-121); ANION GAP 19 (8-16); ASPARTATE AMINO TRANSFERASE 31 IU/L (15-46); BLOOD UREA NITROGEN 71 mg/dl (7-20); CALCIUM 8.6 mg/dl (8.4-10.2); CARBON DIOXIDE 25 mmol/L (21-31); CHLORIDE 100 mmol/L (97-110); CREATININE 7.05 mg/dl (0.61-1.24); GLUCOSE 161 mg/dl (70-220); POTASSIUM 4.8 mmol/L (3.5-5.1); SODIUM 139 mmol/L (135-144); TOTAL PROTEIN 6.9 g/dl (6.1-8.1)
[2017-04-10 18:04] LABS: TROPONIN-I < 0.012 ng/ml (0.00-0.12)
--- NOTE | 2017-04-10 19:15 | RADRPT ---
PROCEDURE: Vascular arterial upper extremity graft right CLINICAL INDICATION: Rule out graft thrombosis TECHNIQUE: Color and duplex Doppler ultrasound was performed. COMPARISON: 04/28/2016 FINDINGS: Thrombosis is seen in the arteriovenous fistula extending from the anastomosis with the right brachi al artery to the anastomosis with the right basilic vein. The right brachial artery is patent. There is thrombosis seen in the right basilic vein in the upper and mid forearm. IMPRESSION: Thrombosis is seen in the arteriovenous fistula extending from the anastomosis with the right brachi al artery to the anastomosis with the right basilic vein. The right brachial artery is patent. There is thrombosis seen in the right basilic vein in the upper and mid forearm. RPTAT: HJES .Jonatan Balbuena MD, MD Date Time Electronically viewed and signed by .Jonatan Balbuena MD, MD on 04/10/2017 19:15 .S/
--- NOTE | 2017-04-10 19:21 | QN ---
Documentation Comment ESRD HTN DM CAD CABG CLOTTED AVG PLAN PER SURGERY SEPIDEH SAUCEDO MD Apr 10, 2017 19:21
[2017-04-10] MEDS ORDERED: NACL 0.9% 3 ML SYG IV SCH (19:30)
[2017-04-10] MEDS ORDERED: GLUCAGON 1 MG INJ IM PRN (19:30)
[2017-04-10] MEDS ORDERED: DOCUSATE SODIUM 100 MG CAP PO PRN (19:30)
[2017-04-10] MEDS ORDERED: ONDANSETRON 4 MG INJ IV PRN (19:30)
[2017-04-10] MEDS ORDERED: DEXTROSE 50% 50 ML SYRINGE IV PRN ×2 (19:30)
[2017-04-10] MEDS ORDERED: GLUCOSE GEL 15 GRAM TUBE PO PRN ×2 (19:30)
[2017-04-10] MEDS ORDERED: BISACODYL (EC) 5 MG TAB PO PRN (19:30)
[2017-04-10] MEDS ORDERED: GLUCOSE GEL 15 GRAM TUBE BUCCAL PRN (19:30)
[2017-04-10 20:45] VITALS: Ht 167.6 cm; Wt 56.0 kg
[2017-04-10 21:00] VITALS: BP 152/66; RESP 20
[2017-04-10] MEDS: INSULIN ASPART [NOVOLOG] 3 ML PEN SC SCH (21:00)
[2017-04-10] MEDS: ATORVASTATIN 80 MG TAB PO SCH (21:51)
[2017-04-10] MEDS: METOPROLOL 50 MG TAB PO SCH (21:52)
[2017-04-10] MEDS: NIFEdipine (XL) 60 MG TAB PO SCH (21:52)
[2017-04-10] MEDS: BENAZEPRIL 40 MG TAB PO SCH (21:52)
--- NOTE | 2017-04-10 22:47 | QN ---
Documentation Comment [id number] SEPIDEH SAUCEDO MD Apr 10, 2017 22:47
[2017-04-10] MEDS: ISOSORBIDE DINITRATE 10 MG TAB PO SCH (22:54)
[2017-04-10 23:59] VITALS: BP 151/69; RESP 18
[2017-04-11] VITALS (11 sets, daily range): BP systolic 95–173; BP diastolic 51–75; PULSE 68–70; RESP 13–20
[2017-04-11] MEDS: ACCU-CHEK XX SCH (02:00)
--- NOTE | 2017-04-11 06:28 | HP ---
DATE OF ADMISSION: 04/10/2017 HISTORY OF PRESENT ILLNESS: Abdon Villanueva is a 67-year-old male who has history of ESRD, hypertension, diabetes mellitus. The patient has also a history of clotted AV graft status post thrombectomy, history of angioplasty of the cephalic vein and brachial artery in the past, acute blindness, arteriosclerotic heart disease, dyslipidemia, history of sepsis, history of foot wound in the past, and the patient has left BKA with interval clotted AV graft. The patient also with progressive weakness. PAST MEDICAL HISTORY: 1. ESRD. 2. Multiple AV grafts with thrombectomy. 3. Left BKA. 4. Arteriosclerotic heart disease. 5. CAD. 6. CABG. 7. Dyslipidemia. 8. Acute blindness. 9. Diabetic nephropathy and retinopathy. ALLERGIES: NEGATIVE. MEDICATIONS: Medication history is listed as the patient is on aspirin, Wilkins catheter, multiple vitamin, Pepcid, Lipitor, benazepril, hydralazine, isosorbide, metoprolol, nifedipine, insulin, Zofran, docusate sodium. FAMILY HISTORY: Noncontributory. SOCIAL HISTORY: Negative. REVIEW OF SYSTEMS: HEENT: Unremarkable except legally blind. RESPIRATORY: Unremarkable. CARDIOVASCULAR: S1, S2 normal. No murmurs. ABDOMEN: Unremarkable EXTREMITIES: He has clotted AV graft and left BKA. NEUROLOGIC: Unremarkable. PHYSICAL EXAMINATION: GENERAL APPEARANCE: The patient is awake and alert, not in any acute respiratory distress. VITAL SIGNS: Pulse 63. Blood pressure 152/66. HEENT: Head is atraumatic. Nose clear. The pupils,both eyes have cloudiness, the pupils are cloudy, corneas cloudy. NECK: Supple. No JVD. LUNGS: Clear. CARDIOVASCULAR: S1, S2 normal. Cavity scar noted. ABDOMEN: Soft. Bowel sounds are present. No palpable mass or hepatosplenomegaly. EXTREMITIES: No cyanosis or clubbing. The patient has edema negative and BKA noted on the left. AV fistula in the right forearm is clotted. LABORATORY DATA: Hematocrit 21.3, WBC 6.2. Sodium 139, potassium 4.8, BUN 71, creatinine 7.05. IMPRESSION: 1. The patient has clotted right forearm arteriovenous graft. 2. End-stage renal disease. 3. Hypertension. 4. Anemia. 5. Status post coronary artery bypass graft. 6. Diabetic ketoacidosis. 7. Legal blindness. 8. Arteriosclerotic heart disease. 9. Dyslipidemia. 10. Multiple arteriovenous grafts with thrombectomies. PLAN: To obtain vascular studies on the patient from Dr. Lacho Jackson. Continue home medications, sliding scale. Diabetic treatment and diet. NPO past midnight. He will be seen by Dr. Lacho Jackson. Dictated By: Eusebio Calhoun MD /laura/cherrie /Document#: [id number]
[2017-04-11 07:00] LABS: CALCIUM 8.3 mg/dl (8.4-10.2); CREATININE 7.8 mg/dl (0.61-1.24); POTASSIUM 5.4 mmol/L (3.5-5.1)
[2017-04-11] MEDS ORDERED: CEFAZOLIN 1 GM INJ ONE (07:00)
[2017-04-11] MEDS: INSULIN ASPART [NOVOLOG] 3 ML PEN SC SCH ×4 (08:00→20:00)
[2017-04-11] MEDS: FAMOTIDINE 20 MG INJ IV SCH (09:28)
[2017-04-11] MEDS: NIFEdipine (XL) 60 MG TAB PO SCH ×2 (09:30→21:00)
[2017-04-11] MEDS: MULTIVIT/CA CARB/B CMPLX/FA TAB PO SCH (09:30)
[2017-04-11] MEDS: METOPROLOL 50 MG TAB PO SCH ×2 (09:30→21:00)
[2017-04-11] MEDS: ISOSORBIDE DINITRATE 10 MG TAB PO SCH ×3 (09:31→21:00)
[2017-04-11] MEDS: BENAZEPRIL 40 MG TAB PO SCH ×2 (09:31→21:00)
[2017-04-11] MEDS: FOLIC ACID 1 MG TAB PO SCH (09:31)
[2017-04-11] MEDS: ASPIRIN (EC) 81 MG TAB PO SCH (09:35)
[2017-04-11] MEDS ORDERED: hydrALAzine 20 MG INJ IV PRN ×2 (10:00→22:00)
--- NOTE | 2017-04-11 10:57 | PN ---
Date/Time of Note Date/Time of Note DATE: 04/11/17 TIME: 10:47 Assessment/Plan VTE Prophylaxis VTE Prophylaxis Intervention: contraindicated Lines/Catheters IV [facility]ter [facility]from [facility] Peripheral IV Urinary Cath still in place: No Assessment/Plan Chief Complaint/Hosp Course 67 y/o with # Clotted Rt AV graft due to thrombosis is seen in the arteriovenous fistula extending from the anastomosis with the right brachial artery to the anastomosis with the right basilic vein. No trauma ? Spontaneous # Hyperkalemia # ESRD on HD T/T/S # Hypertension. # Anemia likely AOCD # Status post coronary artery bypass graft. # DM # Legal blindness. # Arteriosclerotic heart disease. # Dyslipidemia. # . Multiple arteriovenous grafts with thrombectomies. Recs - Spoke to Dr Faye regarding Fistulogram/ thrombectomy today - NPO - Kayexalate for Hyperkalemia - If graft is not salvaged then will need Temporary cathether - iv hydrazine fo BP control - c/w home meds Problems: Subjective 24 Hr Interval Summary Free Text/Dictation Denies any complains Exam/Review of Systems Vital Signs Vitals Vital Signs Date Time Temp Pulse Resp B/P Pulse Ox O2 Delivery O2 Flow Rate FiO2 04/11/17 07:40 98.5 71 18 173/75 97 Intake and Output 04/10/17 04/10/17 04/11/17 15:00 23:00 07:00 Intake Total 300 ml Balance 300 ml Exam GENERAL APPEARANCE: The patient is awake and alert, not in any acute respiratory distress. HEENT: Head is atraumatic. Nose clear. The pupils,both eyes have cloudiness, the pupils are cloudy, corneas cloudy. NECK: Supple. No JVD. LUNGS: Clear. CARDIOVASCULAR: S1, S2 normal. Cavity scar noted. ABDOMEN: Soft. Bowel sounds are present. No palpable mass or hepatosplenomegaly. EXTREMITIES: No cyanosis or clubbing. The patient has edema negative and BKA noted on the left. AV fistula in the right forearm with no bruit and thrill Results Result Diagram: 04/10/17 1710 04/11/17 0443 Results 24 hrs Laboratory Tests Test 04/10/17 17:10 04/10/17 20:39 04/11/17 04:43 04/11/17 08:00 White Blood Count 6.2 Red Blood Count 2.63 #L Hemoglobin 8.3 #L Hematocrit 25.3 #L Mean Corpuscular Volume 96.2 Mean Corpuscular Hemoglobin 31.6 Mean Corpuscular Hemoglobin Concent 32.8 Red Cell Distribution Width 14.6 H Platelet Count 153 Mean Platelet Volume 10.0 Neutrophils % 70.1 Lymphocytes % 15.8 Monocytes % 10.0 Eosinophils % 3.7 Basophils % 0.2 Nucleated Red Blood Cells % 0.0 Neutrophils # 4.4 Lymphocytes # 1.0 Monocytes # 0.6 Eosinophils # 0.2 Basophils # 0.0 Nucleated Red Blood Cells # 0.0 Prothrombin Time 14.2 Prothrombin Time Ratio 1.1 INR International Normalized Ratio 1.10 Sodium Level 139 138 Potassium Level 4.8 5.4 H Chloride Level 100 103 Carbon Dioxide Level 25 23 Anion Gap 19 H 17 H Blood Urea Nitrogen 71 H 84 H Creatinine 7.05 H 7.80 H Glucose Level 161 113 # Calcium Level 8.6 8.3 L Total Bilirubin 0.0 L Direct Bilirubin 0.00 Indirect Bilirubin 0.0 Aspartate Amino Transf (AST/SGOT) 31 Alanine Aminotransferase (ALT/SGPT) 37 Alkaline Phosphatase 156 H Troponin I < 0.012 Total Protein 6.9 Albumin 3.8 Globulin 3.10 Albumin/Globulin Ratio 1.22 Lipase 244 Bedside Glucose 140 118 Medications Medications Current Medications Aspirin (Halfprin) 81 mg DAILY PO Last administered on 04/11/17 09:35; Admin Dose 81 MG; Start 04/11/17 at 09:00 Atorvastatin Calcium (Lipitor) 80 mg QHS PO Last administered on 04/10/17 21: 51; Admin Dose 80 MG; Start 04/10/17 at 21:00 Benazepril HCl (Lotensin) 40 mg BID PO Last administered on 04/11/17 09:31; Admin Dose 40 MG; Start 04/10/17 at 21:00 Folic Acid (Folic Acid) 1 mg DAILY PO Last administered on 04/11/17 09:31; Admin Dose 1 MG; Start 04/11/17 at 09:00 Hydralazine HCl (Apresoline) 50 mg TID PO Last administered on 04/11/17 09:32 ; Admin Dose 50 MG; Start 04/10/17 at 21:00 Isosorbide Dinitrate (Isordil) 30 mg TID PO Last administered on 04/11/17 09: 31; Admin Dose 30 MG; Start 04/10/17 at 21:00 Metoprolol Tartrate (Lopressor) 50 mg BID PO Last administered on 04/11/17 09: 30; Admin Dose 50 MG; Start 04/10/17 at 21:00 Multivit/Ca Carb/ B Cmplx/FA/Prenat (Samina-Alexandrea) 1 tab DAILY PO Last administered on 04/11/17 09:30; Admin Dose 1 TAB; Start 04/11/17 at 09:00 Nifedipine (Procardia Xl) 60 mg BID PO Last administered on 04/11/17 09:30; Admin Dose 60 MG; Start 04/10/17 at 21:00 Ondansetron HCl (Zofran Inj) 4 mg Q6H PRN IV NAUSEA AND/OR VOMITING; Start at 19:30 Docusate Sodium (Colace) 100 mg Q12H PRN PO CONSTIPATION; Start 04/10/17 at 19: 30 Bisacodyl (Dulcolax) 5 mg DAILY PRN PO CONSTIPATION; Start 04/10/17 at 19:30 Famotidine (Pepcid Iv) 10 mg DAILY IV Last administered on 04/11/17 09:28; Admin Dose 10 MG; Start 04/11/17 at 09:00 Diagnostic Test (Pha) (Accu-Chek) 1 ea 02 XX ; Start 04/11/17 at 02:00 Miscellaneous Information 1 ea NOTE XX ; Start 04/10/17 at 19:30 Glucose (Glutose) 15 gm Q15M PRN PO DECREASED GLUCOSE; Start 04/10/17 at 19:30 Glucose (Glutose) 22.5 gm Q15M PRN PO DECREASED GLUCOSE; Start 04/10/17 at 19: 30 Dextrose (D50w Syringe) 25 ml Q15M PRN IV DECREASED GLUCOSE; Start 04/10/17 at 19:30 Dextrose (D50w Syringe) 50 ml Q15M PRN IV DECREASED GLUCOSE; Start 04/10/17 at 19:30 Glucagon (Glucagen) 1 mg Q15M PRN IM DECREASED GLUCOSE; Start 04/10/17 at 19:30 Glucose (Glutose) 15 gm Q15M PRN BUCCAL DECREASED GLUCOSE; Start 04/10/17 at 19 :30 Hydralazine HCl (Apresoline) 5 mg Q4H PRN IV sbp>170; Start 04/11/17 at 10:00 Sodium Polystyrene Sulfonate (Kayexalate) 60 gm ONCE ONCE PO ; Start 04/11/17 at 11:00; Stop 04/11/17 at 11:01 CARMEN YAÑEZ MD Apr 11, 2017 10:57
[2017-04-11] MEDS ORDERED: NA POLYST SULFON 15 GM/60 ML BTL PO ONE (11:00)
[2017-04-11] MEDS ORDERED: SOD CHLORIDE 0.9% 1,000 ML IV PRN (14:30)
[2017-04-11] MEDS ORDERED: MANNITOL 25% 50 ML IV PRN (14:30)
[2017-04-11] MEDS ORDERED: ALBUMIN HUMAN 25% 50 ML IV PRN (14:30)
[2017-04-11] MEDS ORDERED: HEPARIN 1000 UNITS/ML 10 ML INJ ONE (20:51)
[2017-04-11] MEDS ORDERED: GELATIN SIZE 100 SPONGE ONE (20:52)
[2017-04-11] MEDS ORDERED: THROMBIN 5000 UNIT VIAL ONE (20:52)
[2017-04-11] MEDS ORDERED: IOHEXOL 300MG/ML 30 ML BTL ONE ×2 (20:52→21:48)
[2017-04-11] MEDS ORDERED: LIDOCAINE 1% (STERILE-PAK) 30 ML INJ ONE (20:53)
[2017-04-11] MEDS ORDERED: BUPIVACAINE 0.25% (MPF) 30 ML INJ ONE (20:53)
[2017-04-11] MEDS: ATORVASTATIN 80 MG TAB PO SCH (21:00)
[2017-04-11] MEDS ORDERED: HEPARIN 1000 UNITS/NS (A-LINE) 0 ML ONE (21:48)
[2017-04-11] MEDS ORDERED: MEPERIDINE 25 MG INJ IV PRN (22:00)
[2017-04-11] MEDS ORDERED: METOCLOPRAMIDE 10 MG INJ IV PRN (22:00)
[2017-04-11] MEDS ORDERED: MIDAZOLAM 1 MG/ML 2 ML INJ IV PRN (22:00)
[2017-04-11] MEDS ORDERED: DIPHENHYDRAMINE 50 MG INJ IV PRN (22:00)
[2017-04-11] MEDS ORDERED: KETOROLAC 30 MG INJ IV PRN (22:00)
[2017-04-11] MEDS ORDERED: ONDANSETRON 4 MG INJ IV PRN (22:00)
[2017-04-11] MEDS ORDERED: INSULIN ASPART [NOVOLOG] 3 ML PEN SC ONE (22:00)
[2017-04-11] MEDS ORDERED: EPHEDrine SULFATE 50 MG/5 ML SYG IV PRN (22:00)
[2017-04-11] MEDS ORDERED: LABETALOL HCL 20MG INJ IV PRN (22:00)
[2017-04-11] MEDS ORDERED: morphine (1 MG/ML) 10ML SYRINGE IV PRN ×3 (22:00)
[2017-04-11] MEDS ORDERED: FENTAnyl 50 MCG/ML VIAL IV PRN ×2 (22:00)
[2017-04-11] MEDS ORDERED: MIDAZOLAM 1 MG/ML 2 ML INJ ONE ×2 (22:19→22:29)
[2017-04-11] MEDS ORDERED: FENTAnyl 50 MCG/ML VIAL ONE (22:19)
--- NOTE | 2017-04-11 23:02 | OPR ---
Date/Time of Note Date/Time of Note DATE: 04/11/17 TIME: 23:01 Operative Report Procedure Date: Apr 11, 2017 Preoperative Diagnosis Clotted RUE AVG Postoperative Diagnosis same Operation Performed Thrombectomy RUE AVG Surgeon see signature line Entry Engineer: BERNY NASH MD Anesthesia Type: MAC Estimated Blood Loss: minimal Transfusion Required: no Specimen: none Grafts/Implants: none Complications: no Pt Condition Post Procedure: stable Disposition: PACU Indications esrd Operative\Procedure Findings dictated Procedure Description dictated BERNY NASH MD Apr 11, 2017 23:02
--- NOTE | 2017-04-11 23:23 | OPR ---
DATE OF OPERATION: 04/12/2017 PREOPERATIVE DIAGNOSIS: Clotted right upper extremity arteriovenous graft. POSTOPERATIVE DIAGNOSIS: Clotted right upper extremity arteriovenous graft. OPERATION PERFORMED: Thrombectomy and revision, right upper extremity arteriovenous graft. SURGEON: Lacho Jackson MD ANESTHESIA: Local plus IV sedation. INDICATIONS: Risks, benefits, complications, and alternatives therapies explained to the patient and the family. Consent obtained. OPERATIVE PROCEDURE: Patient was placed in supine position, prepped and draped in the usual sterile fashion, and 1 percent lidocaine was used throughout the operation for local anesthesia. Time-out was called. Antibiotics were given, and I started. Patient was placed in supine position, prepped and draped in the usual sterile fashion. I made a 2-cm incision over the venous limb of the graft. Graft was identified. VesseLoops were passed around it. Appeared to be aneurysmal. It was then completely resected. Thrombectomy of the arterial and the venous limb of the graft was performed using a 4-Kinyarwanda Dylan catheter. The arterial inflow appeared to be strong. The venous outflow appeared to be with low resistance. After the thrombectomy was done, both limbs of the graft were injected using heparinized saline. The graft was then reanastomosed in revised fashion. The wound was then irrigated and closed in 2 layers of 3-0 Vicryl sutures running and running in subcuticular skin closure. Patient had a strong thrill and a bruit over the newly revised graft, tolerated procedure well. Dictated By: Lacho Jackson MD /larua/noa /Document#: [id number]
[2017-04-12] VITALS (12 sets, daily range): BP systolic 90–176; BP diastolic 47–76; PULSE 66–72; RESP 16–18
[2017-04-12] MEDS: ACCU-CHEK XX SCH (02:00)
[2017-04-12] MEDS ORDERED: BENAZEPRIL 40 MG TAB PO ONE (06:00)
[2017-04-12] MEDS ORDERED: NIFEdipine (XL) 60 MG TAB PO ONE (06:00)
[2017-04-12 06:44] LABS: CALCIUM 8.2 mg/dl (8.4-10.2); CREATININE 9.35 mg/dl (0.61-1.24)
[2017-04-12] MEDS: INSULIN ASPART [NOVOLOG] 3 ML PEN SC SCH ×2 (08:00→12:00)
[2017-04-12] MEDS: FOLIC ACID 1 MG TAB PO SCH (09:00)
[2017-04-12] MEDS: NIFEdipine (XL) 60 MG TAB PO SCH (09:00)
[2017-04-12] MEDS: BENAZEPRIL 40 MG TAB PO SCH (09:00)
[2017-04-12] MEDS: ASPIRIN (EC) 81 MG TAB PO SCH (09:00)
[2017-04-12] MEDS: FAMOTIDINE 20 MG INJ IV SCH (09:00)
[2017-04-12] MEDS: MULTIVIT/CA CARB/B CMPLX/FA TAB PO SCH (09:00)
[2017-04-12] MEDS: ISOSORBIDE DINITRATE 10 MG TAB PO SCH (09:00)
[2017-04-12] MEDS: METOPROLOL 50 MG TAB PO SCH (09:00)
--- NOTE | 2017-04-12 10:29 | PDOCDIS ---
Discharge Instructions DIAGNOSIS Discharge Diagnosis Graft thrombosis s/p thrombectomy CONDITION Patient Condition: Fair HOME CARE INSTRUCTIONS: Special Diet: Renal carb controlled ACTIVITY: Activity Restrictions: Slowly Increase Activity FOLLOW UP/APPOINTMENTS Follow-up Plan f/u HD center [facility] F/U PCP in 2 weeks Return to ER if has no thrill/bruit in graft CARMEN YAÑEZ MD Apr 12, 2017 10:29
--- NOTE | 2017-04-12 14:19 | DS ---
DATE OF ADMISSION: 04/10/2017 DATE OF DISCHARGE: 04/12/2017 HISTORY OF PRESENT ILLNESS AND HOSPITAL COURSE: This is a 67- year-old with a history of end-stage renal disease, on hemodialysis Monday, , Monday, hypertension, diabetes, history of clotted AV graft, status post thrombectomy, and history of angioplasty of cephalic vein brachial artery in the past, blindness, atherosclerotic disease, dyslipidemia, history of foot wound, has left BKA, who presented to the emergency department after the patient found that there was no bruit or thrill in the right arm fistula and came to the ED. Patient got his regular dialysis on Monday, but on Monday, he noted that there was no bruit or thrill noted in the right arm. On arrival the ED, pulse was 63, blood pressure 152/66. Extremity showed AV graft had no bruit or fistula. Hematocrit was 21.3, white count 6.0. Sodium 139, potassium 4.8, BUN of 71, and creatinine 7.05. The patient had an arterial study that showed a thrombus seen in the AV fistula extending from anastomosis of the right brachial artery to the anastomosis of the right basilic vein, right brachial artery is patent. There is thrombosis seen in the right basilic vein pain in the upper and mid forearm. The patient was seen by Dr. Jackson and had thrombectomy of the right upper extremity AV graft, which was successful. The patient had thrombectomy, revision of the right upper extremity AV graft. Postop, the patient did not have any complications. Patient received a full session of dialysis after which he tolerated very well. Patient had a good bruit and thrill in the right arm. Currently, patient is stable to be discharged home with followup in dialysis center in the morning. FINAL DIAGNOSES: 1. Thrombosis of the right arteriovenous graft, status post thrombectomy and revision, by Dr. Jackson on 04/11/2017. 2. End-stage renal disease, on dialysis Monday, , Monday. 3. Multiple arteriovenous grafts with thrombectomy. 4. Left below-knee amputation. 5. Atherosclerotic disease. 6. Coronary artery disease. 7. Coronary artery bypass graft. 8. Dyslipidemia. 9. Legal blindness. 10. Diabetic nephropathy, retinopathy. Dictated By: MD HENOK Strong/laura/saul /Document#: [id number]
== END 2017-04-12 12:40 | disposition home or self-care (01) ==
LOC: E/R 14:04 → PP2 18:23 → INTOOBSV 18:23 → UNDODISOB 04-12 12:40
PROVIDERS: ADMIT Internal Medicine Nephrology; ATTEND Internal Medicine Nephrology
DX: T82.868A Thrombosis due to vascular prosthetic devices, implants and grafts, initial encounter (principal); Y83.2 Surgical operation with anastomosis, bypass or graft as the cause of abnormal reaction of the patient, or of later complication, without mention of misadventure at the time of the procedure; Y92.9 Unspecified place or not applicable; N18.6 End stage renal disease; Z99.2 Dependence on renal dialysis; I25.10 Atherosclerotic heart disease of native coronary artery without angina pectoris; Z95.1 Presence of aortocoronary bypass graft; I12.0 Hypertensive chronic kidney disease with stage 5 chronic kidney disease or end stage renal disease; Z89.512 Acquired absence of left leg below knee; E11.22 Type 2 diabetes mellitus with diabetic chronic kidney disease; H54.0 Blindness, both eyes; E11.40 Type 2 diabetes mellitus with diabetic neuropathy, unspecified; E11.319 Type 2 diabetes mellitus with unspecified diabetic retinopathy without macular edema; E78.5 Hyperlipidemia, unspecified; E13.10 Other specified diabetes mellitus with ketoacidosis without coma; D64.9 Anemia, unspecified; Z79.4 Long term (current) use of insulin
CPT/HCPCS: 36415; 36833; 37607; 80048; 80053; 82962; 83690; 84484; 85025; 85610; 88304; 90935; 93005; 93931; 99285; G0378; J0360; J0690; J1644; J1815; J2250; J3010; Q9967; 99217